=== PATIENT | male | born 1945 | race Caucasian/White ===

== ENCOUNTER 2018-01-10 21:14 | Emergency (ER) | payer MEDICARE, OTHER ==
[~2018-01-10] VITALS: Ht 172.7 cm; Wt 68.0 kg
[~2018-01-10 21:14] MED LIST: ALLO300; ALLO300 PO; AMLO10 PO; ASPI81CH; ASPI81CH PO; CARB100; COMBIVENT RESPIM4 GM; Crestor20 MG PO; Crestor40 MG; GABA100; LEVCAR10 PO; LEVSOD50; Lotensin40 MG PO; MINO100 PO; MINO50; Ocuvite Lutein1 EACH; PENVK500 PO; Synthroid175 MCG PO; [UNRECOGNIZED DRUG - OTHER] PO
[2018-01-10] MEDS ORDERED: PRESSER VISION PO (23:27)
[2018-01-10] MEDS ORDERED: Prednisone20 MG PO (23:49)
== END 2018-01-10 23:58 | disposition home or self-care (01) ==
LOC: ER 21:14
DX: T78.3XXA Angioneurotic edema, initial encounter (principal); Z88.8 Allergy status to other drugs, medicaments and biological substances; Z79.899 Other long term (current) drug therapy; Z85.850 Personal history of malignant neoplasm of thyroid
CPT/HCPCS: 99283

== ENCOUNTER 2019-11-19 14:40 | Emergency (ER) | payer MEDICARE, BC ==
[~2019-11-19] VITALS: Ht 175.3 cm; Wt 68.0 kg
[~2019-11-19 14:40] MED LIST changes: +PRESSER VISION PO; +Prednisone20 MG PO
[2019-11-19 15:20] LABS: BASOPHILS ABSOLUTE AUTO 0.04 K/mm3 (0.00-0.23); BASOPHILS PERCENT AUTO 0 % (0-2); EOSINOPHILS ABSOLUTE AUTO 0.06 K/mm3 (0.00-0.68); EOSINOPHILS PERCENT AUTO 1 % (0-6); Hematocrit 45.2 % (37.0-53.0); Hemoglobin 15.5 g/dL (13.5-17.5); IMMATURE GRAN ABSOLUTE AUTO 0.02 K/mm3 (0.00-0.10); IMMATURE GRAN PERCENT AUTO 0 % (0-1); LYMPHOCYTES ABSOLUTE AUTO 1.17 K/mm3 (0.84-5.20); LYMPHOCYTES PERCENT AUTO 13 % (21-46); MONOCYTES ABSOLUTE AUTO 0.49 K/mm3 (0.16-1.47); MONOCYTES PERCENT AUTO 5 % (4-13); Mean Corpuscular HGB 29.9 pg (26.0-34.0); Mean Corpuscular HGB Conc 34.3 g/dL (31.5-36.5); Mean Corpuscular Volume 87 fL (80-100); Mean Platelet Volume 10.4 fL (9.1-12.4); NEUTROPHILS PERCENT AUTO 80 % (41-73); Platelet Count 218 K/mm3 (150-400); RDW Coefficient Variation 13.7 % (11.7-14.2); RDW Standard Deviation 43.8 fL (35.1-46.3); Red Blood Cell Count 5.19 M/mm3 (4.30-5.90); White Blood Cell Count 9.08 K/mm3 (4.00-11.30)
[2019-11-19 15:20] LABS: Source, Urine Clean Catch
[2019-11-19 15:27] LABS: Bilirubin, Urine Neg (Neg); Blood, Urine 1+ (Neg); Glucose Qualitative, Urine Neg (Neg); Ketones, Urine 1+ (Neg); Leukocyte Esterase, Urine Neg (Neg); Nitrite, Urine Neg (Neg); Protein, Urine 2+ (Neg); Urobilinogen, Urine NORM (Normal); pH, Urine 6.5 (5.0-8.0)
[2019-11-19 15:33] LABS: Appearance, Urine Clear (Clear); Color, Urine Yellow (P-Yellow)
[2019-11-19 15:34] LABS: Bacteria Few /hpf; Squamous Epithelial Cells Rare /hpf (Few); White Blood Cells, Urine 0-2 /hpf (0-5)
[2019-11-19 15:42] LABS: Magnesium, Blood 2.6 mg/dL (1.6-2.4); Troponin I <0.015 ng/mL (0.000-0.040)
[2019-11-19 15:43] LABS: Alanine Aminotransfer (ALT/SGP 43 U/L (12-78); Albumin, Blood 4.8 g/dL (3.4-5.0); Alk Phos 110 U/L (50-136); Anion Gap 10 mmol/L (6-16); Aspartate Aminotrans (AST/SGOT 44 U/L (12-37); Bilirubin, Total 0.8 mg/dL (0.1-1.0); Blood Urea Nitrogen 32 mg/dL (8-24); Bun/Creatinine Ratio 31.4 (12.0-20.0); CO2, Blood 24 mmol/L (21-32); Calcium, Blood 9.5 mg/dL (8.5-10.1); Chloride, Blood 103 mmol/L (98-108); Creatinine, Blood 1.02 mg/dL (0.60-1.20); Globulin, Blood 4.8 g/dL (2.2-4.0); Glomerular Filtration Rate >60 (60-); Glucose, Blood 122 mg/dL (70-99); Potassium, Blood 3.5 mmol/L (3.5-5.5); Sodium, Blood 137 mmol/L (136-145); Total Protein, Blood 9.6 g/dL (6.4-8.2)
== END 2019-11-19 16:10 | disposition home or self-care (01) ==
LOC: ER 14:40
PROVIDERS: Emergency Medicine
DX: R55 Syncope and collapse (principal); E86.0 Dehydration; Z88.6 Allergy status to analgesic agent; Z88.8 Allergy status to other drugs, medicaments and biological substances; Z79.899 Other long term (current) drug therapy; Z87.891 Personal history of nicotine dependence
CPT/HCPCS: 36415; 71045; 80053; 81001; 83735; 83880; 84145; 84484; 85025; 93005; 93010; 96360; 99284-25; J7030

== ENCOUNTER 2020-05-06 11:49 | Emergency (ER) | payer MEDICARE, BC ==
[~2020-05-06] VITALS: Ht 172.7 cm; Wt 69.0 kg
[2020-05-06 12:22] LABS: BASOPHILS ABSOLUTE AUTO 0.07 K/mm3 (0.00-0.23); BASOPHILS PERCENT AUTO 1 % (0-2); EOSINOPHILS ABSOLUTE AUTO 0.11 K/mm3 (0.00-0.68); EOSINOPHILS PERCENT AUTO 1 % (0-6); Hematocrit 41.1 % (37.0-53.0); Hemoglobin 14.5 g/dL (13.5-17.5); IMMATURE GRAN ABSOLUTE AUTO 0.03 K/mm3 (0.00-0.10); IMMATURE GRAN PERCENT AUTO 0 % (0-1); LYMPHOCYTES ABSOLUTE AUTO 1.28 K/mm3 (0.84-5.20); LYMPHOCYTES PERCENT AUTO 12 % (21-46); MONOCYTES ABSOLUTE AUTO 0.38 K/mm3 (0.16-1.47); MONOCYTES PERCENT AUTO 4 % (4-13); Mean Corpuscular HGB 30.6 pg (26.0-34.0); Mean Corpuscular HGB Conc 35.3 g/dL (31.5-36.5); Mean Corpuscular Volume 87 fL (80-100); NEUTROPHILS ABSOLUTE AUTO 8.85 K/mm3 (1.96-9.15); NEUTROPHILS PERCENT AUTO 83 % (41-73); Platelet Count 222 K/mm3 (150-400); RDW Coefficient Variation 12.8 % (11.7-14.2); RDW Standard Deviation 40.1 fL (35.1-46.3); Red Blood Cell Count 4.74 M/mm3 (4.30-5.90); White Blood Cell Count 10.72 K/mm3 (4.00-11.30)
[2020-05-06 12:36] LABS: International Normalized Ratio 0.99; Prothrombin Time Results 10.6 Sec (9.7-11.5)
[2020-05-06 12:45] LABS: Alanine Aminotransfer (ALT/SGP 47 U/L (12-78); Albumin, Blood 4.1 g/dL (3.4-5.0); Alk Phos 105 U/L (50-136); Anion Gap 9 mmol/L (6-16); Aspartate Aminotrans (AST/SGOT 62 U/L (12-37); Bilirubin, Total 0.8 mg/dL (0.1-1.0); Blood Urea Nitrogen 19 mg/dL (8-24); Bun/Creatinine Ratio 24.7 (12.0-20.0); CO2, Blood 22 mmol/L (21-32); Chloride, Blood 101 mmol/L (98-108); Creatinine, Blood 0.77 mg/dL (0.60-1.20); Glomerular Filtration Rate >60 (60-); Glucose, Blood 206 mg/dL (70-99); Sodium, Blood 132 mmol/L (136-145); Total Protein, Blood 8.1 g/dL (6.4-8.2)
[2020-05-06] MEDS ORDERED: EUTHYROX150 MC1 PO (17:43)
[2020-05-06] MEDS ORDERED: DYAZIDE 37.5-21 EACH PO (17:43)
[2020-05-06] MEDS ORDERED: VIT1CAPS12 PO (17:44)
[2020-05-06] MEDS ORDERED: MECL25 PO (19:40)
== END 2020-05-06 19:45 | disposition home or self-care (01) ==
LOC: ER 11:49
PROVIDERS: Physician Assistant
DX: R22.0 Localized swelling, mass and lump, head (principal); R20.0 Anesthesia of skin; R42 Dizziness and giddiness; F17.220 Nicotine dependence, chewing tobacco, uncomplicated; Z88.8 Allergy status to other drugs, medicaments and biological substances; Z88.6 Allergy status to analgesic agent; Z79.52 Long term (current) use of systemic steroids; Z79.899 Other long term (current) drug therapy
CPT/HCPCS: 36415; 70450; 70496; 70498; 71045; 80053; 84484; 85025; 85610; 93005; 93010; 99284-25; Q9967

== ENCOUNTER 2021-01-25 09:07 | Day surgery (SDC) | payer MEDICARE, BC ==
[~2021-01-25] VITALS: Ht 172.7 cm; Wt 64.6 kg
[~2021-01-25 09:07] MED LIST changes: +DYAZIDE 37.5-21 EACH PO; +EUTHYROX150 MC1 PO; +MECL25 PO; +VIT1CAPS12 PO
== END 2021-01-25 11:30 | disposition home or self-care (01) ==
LOC: ORSCSDS 09:07
PROVIDERS: Internal Medicine Gastroenterology
PROC: 0DJD8ZZ Inspection of Lower Intestinal Tract, Via Natural or Artificial Opening Endoscopic (ICD-10-PCS; principal; 2021-01-25 10:30)
DX: Z12.11 Encounter for screening for malignant neoplasm of colon (principal); Z86.010 Personal history of colon polyps; Z80.0 Family history of malignant neoplasm of digestive organs; K57.30 Diverticulosis of large intestine without perforation or abscess without bleeding; Z79.899 Other long term (current) drug therapy
CPT/HCPCS: J2704; J7120

== ENCOUNTER → 2025-01-22 | Outpatient (CLI) | payer MEDICARE, OTHER ==
[2025-01-22 17:47] LABS: BASOPHILS ABSOLUTE AUTO 0.04 K/mm3 (0.00-0.23); BASOPHILS PERCENT AUTO 0 % (0-2); EOSINOPHILS ABSOLUTE AUTO 0.07 K/mm3 (0.00-0.68); EOSINOPHILS PERCENT AUTO 1 % (0-6); Hematocrit 41.5 % (37.0-53.0); Hemoglobin 14.6 g/dL (13.5-17.5); IMMATURE GRAN ABSOLUTE AUTO 0.03 K/mm3 (0.00-0.10); IMMATURE GRAN PERCENT AUTO 0 % (0-1); LYMPHOCYTES ABSOLUTE AUTO 1.70 K/mm3 (0.84-5.20); LYMPHOCYTES PERCENT AUTO 17 % (21-46); MONOCYTES ABSOLUTE AUTO 0.65 K/mm3 (0.16-1.47); MONOCYTES PERCENT AUTO 6 % (4-13); Mean Corpuscular HGB Conc 35.2 g/dL (31.5-36.5); Mean Corpuscular Volume 83 fL (80-100); NEUTROPHILS ABSOLUTE AUTO 7.70 K/mm3 (1.96-9.15); NEUTROPHILS PERCENT AUTO 76 % (41-73); NRBC ABSOLUTE 0.00 K/mm3 (0.00-0.02); NRBC Auto 0.0 /100 WBC (0.0-0.2); Platelet Count 213 K/mm3 (150-400); RDW Coefficient Variation 13.7 % (11.7-14.2); RDW Standard Deviation 41.6 fL (35.1-46.3)
[2025-01-22 17:48] LABS: Prothrombin Time Results 11.0 Sec (9.7-11.5)
== END | disposition home or self-care (01) ==
LOC: LAB SHORT 16:09 → LAB 16:09
PROVIDERS: Family Medicine
DX: I10 Essential (primary) hypertension (principal); R93.2 Abnormal findings on diagnostic imaging of liver and biliary tract; R79.1 Abnormal coagulation profile
CPT/HCPCS: 85025; 85610; 85730

== ENCOUNTER 2025-02-02 12:21 | Observation (INO) | payer MEDICARE, OTHER ==
[~2025-02-02] VITALS: Ht 172.7 cm; Wt 61.5 kg
[~2025-02-02 12:21] MED LIST changes: -Crestor20 MG PO; +Crestor40 MG PO; +EUTHYROX137 MC1 PO; -EUTHYROX150 MC1 PO; +PRESERVISION L1 EAC2 PO; -VIT1CAPS12 PO
[2025-02-02 12:56] LABS: BASOPHILS ABSOLUTE AUTO 0.03 K/mm3 (0.00-0.23); BASOPHILS PERCENT AUTO 0 % (0-2); EOSINOPHILS ABSOLUTE AUTO 0.05 K/mm3 (0.00-0.68); EOSINOPHILS PERCENT AUTO 0 % (0-6); Hematocrit 38.7 % (37.0-53.0); Hemoglobin 13.8 g/dL (13.5-17.5); IMMATURE GRAN ABSOLUTE AUTO 0.02 K/mm3 (0.00-0.10); IMMATURE GRAN PERCENT AUTO 0 % (0-1); LYMPHOCYTES ABSOLUTE AUTO 0.76 K/mm3 (0.84-5.20); LYMPHOCYTES PERCENT AUTO 7 % (21-46); MONOCYTES ABSOLUTE AUTO 0.66 K/mm3 (0.16-1.47); MONOCYTES PERCENT AUTO 6 % (4-13); Mean Corpuscular HGB Conc 35.7 g/dL (31.5-36.5); Mean Corpuscular Volume 84 fL (80-100); NEUTROPHILS ABSOLUTE AUTO 10.00 K/mm3 (1.96-9.15); NEUTROPHILS PERCENT AUTO 87 % (41-73); NRBC ABSOLUTE 0.00 K/mm3 (0.00-0.02); NRBC Auto 0.0 /100 WBC (0.0-0.2); Platelet Count 180 K/mm3 (150-400); RDW Coefficient Variation 13.7 % (11.7-14.2); RDW Standard Deviation 42.0 fL (35.1-46.3)
[2025-02-02] MEDS ORDERED: Ondansetron HCl 2 MG / ML 2ML Vial IV ONE ×2 (13:05→20:10)
[2025-02-02 13:17] LABS: Alanine Aminotransfer (ALT/SGP 25 U/L (12-78); Albumin, Blood 3.4 g/dL (3.4-5.0); Albumin/Globulin Ratio 0.8 (0.8-1.8); Anion Gap 11 mmol/L (3-11); Aspartate Aminotrans (AST/SGOT 23 U/L (12-37); Bilirubin, Total 0.6 mg/dL (0.1-1.0); Blood Urea Nitrogen 16 mg/dL (8-24); CHOL/HDL RATIO 2.9; CO2, Blood 23 mmol/L (21-32); Calcium, Blood 8.8 mg/dL (8.5-10.1); Chloride, Blood 106 mmol/L (98-108); Cholesterol 116 mg/dL (50-200); Creatinine, Blood 0.73 mg/dL (0.60-1.20); Globulin, Blood 4.3 g/dL (2.2-4.0); Glucose, Blood 173 mg/dL (70-99); HDL Cholesterol 40 mg/dL (>39); LDL/HDL RATIO 1.5; Low Density Lipoprotein Chol 58 mg/dL (0-110); Potassium, Blood 3.7 mmol/L (3.5-5.5); Sodium, Blood 136 mmol/L (136-145); Total Protein, Blood 7.7 g/dL (6.4-8.2); Triglycerides 89 mg/dL (30-160); Very Low Density Lipoprot Chol 17 mg/dL (6-32)
[2025-02-02 18:33] VITALS: BP 113/67
--- NOTE | 2025-02-02 18:38 | NUR ---
PT ADMITTED TO ROOM 329 FROM ED AT 1825. PT ORIENTED TO ROOM SET UP AND SAFETY. INSTRUCTED TO CALL FOR SBA FOR ALL ACTIVITY OUT OF BED. NEURO- PT STATES HE IS SEEING DOUBLE, BLURRY VISION AND FEELING DIZZY. CLOSE ONE EYE TO BE ABLE TO STOP DOUBLE VISION. PT IS A/O X4, MILDLY DELAY IN SPEECH. NOT FEELING HUNGRY, MILDLY NAUSEATED FROM DIZZINESS. SUPPLIED WITH WATER. CALL LIGHT IN REACH. SETTING UP TELE. WILL MEDICATE FOR NAUSEA. WILL REPORT TO NOC RN
[2025-02-02 19:29] VITALS: BP 137/75
[2025-02-02] MEDS ORDERED: Ondansetron HCl 2 MG / ML 2ML Vial IV PRN (20:10)
[2025-02-03 00:21] VITALS: BP 135/69
[2025-02-03 04:56] VITALS: BP 132/77
--- NOTE | 2025-02-03 06:37 | NUR ---
PANELBEATER SUMMARY PT A&OX4, VSS, EXCEPT SLIGHTLY ELEVATED BP. PT DIRECT ADMIT FROM ED AT SHIFT CHANGE FOR NEURO DEFICITS. CONTINUES TO HAVE INTERMITTENT VERTIGO AND NAUSEA. DENIES BLURRY/DOUBLE VISION. NO FACIAL DROOPS OBSERVED. PT PLEASANT AND COOPERATIVE. HAS BEEN ASLEEP FOR MOST OF THE NIGHT. CHEST RISE/RESPIRATIONS NOTED. PT REMAINS ON TELE AND HAS AN AV PACEMAKER PACED AT 64. PACEMAKER IS NOT MRI COMPATIBLE. REPEAT CT SCAN BEING CONSIDERED TODAY. BED RAILS UP X 2, BED IN LOWEST POSITION, BED WHEELS LOCKED, PERSONAL BELONGINGS AND CALL LIGHT WITHIN REACH FOR SAFETY.
[2025-02-03 07:45] VITALS: BP 132/66
[2025-02-03] MEDS ORDERED: Enoxaparin 30 MG/0.3 ML SYR SC SCH (09:00)
[2025-02-03] MEDS ORDERED: MELATONIN 5 MG1 EACH PO (10:18)
[2025-02-03] MEDS ORDERED: Bentyl20 MG PO (10:19)
--- NOTE | 2025-02-03 10:32 | NUR ---
DOUBLE VISION PT C/O DOUBLE VISION TO PHARMACISIT. RN IN TO ASSESS. NEUROLOGICALLY INTACT EXCEPT FOR THE DOUBLE VISION. R EYE APPEARED TO BE DRIFTING OFF TO THE R SIDE DURING ASSESSMENT. DR. DELUNA NOTIFIED AND IN TO ASSESS THE PATIENT HIMSLEF.
[2025-02-03 13:11] VITALS: BP 135/63
[2025-02-03] MEDS ORDERED: ASPI81CH PO (14:04)
--- NOTE | 2025-02-03 15:51 | NUR ---
discharge instructions reviewed with patient and his , questions answered. pt and verbalize understanding of discharge instructions. pts reorts she will call today to make opthamologist appt. discharged to home with
== END 2025-02-03 16:12 | disposition home health service (06) ==
LOC: ER 12:21 → MEDS 12:22
PROVIDERS: Emergency Medicine; ADMIT Internal Medicine
DX: R53.1 Weakness (principal); R47.81 Slurred speech; H53.2 Diplopia; E89.0 Postprocedural hypothyroidism; I10 Essential (primary) hypertension; E78.00 Pure hypercholesterolemia, unspecified; Z87.891 Personal history of nicotine dependence; Z79.890 Hormone replacement therapy; Z79.82 Long term (current) use of aspirin; Z79.899 Other long term (current) drug therapy; Z88.6 Allergy status to analgesic agent; Z88.8 Allergy status to other drugs, medicaments and biological substances; Z95.0 Presence of cardiac pacemaker
CPT/HCPCS: 70450; 70496; 70498; 80053; 80061; 82140; 84484; 85025; 93005; 93010; 96372; 96376; 97116; 97162; A9270; G0378; J1650; J2405; Q9967